=== PATIENT | male | born 1995 | race Caucasian/White ===

== ENCOUNTER 2018-10-17 07:14 | Emergency (ER) | payer BC ==
[~2018-10-17] VITALS: Ht 182.9 cm; Wt 81.8 kg
[2018-10-17 07:16] VITALS: BP 123/79; TEMP 97
[2018-10-17 08:48] LABS: COLLECTION METHOD CLEAN CATCH
[2018-10-17 08:54] LABS: MUCOUS Present /lpf; PH 5 (5-8); SQUAMOUS EPITHELIAL 0-2 /hpf; URINE APPEARANCE Clear; URINE BACTERIA None Seen /hpf; URINE BILIRUBIN Negative (NEGATIVE); URINE BLOOD Negative (NEGATIVE); URINE COLOR Yellow; URINE GLUCOSE Negative (NEGATIVE); URINE KETONE Negative (NEGATIVE); URINE LEUKOCYTE ESTERASE Negative (NEGATIVE); URINE NITRATE Negative (NEGATIVE); URINE PROTEIN(semi-quant) Negative (NEGATIVE); URINE RBC 0-2 /hpf; URINE UROBILINOGEN Negative (NEGATIVE)
[2018-10-17 08:55] VITALS: PULSE 75
== END 2018-10-17 08:55 | disposition home or self-care (01) ==
LOC: COL.ER 07:14
PROVIDERS: Family Medicine
DX: N50.812 Left testicular pain (principal)